=== PATIENT | male | born 1985 | race Caucasian/White ===

== ENCOUNTER 2016-12-14 08:17 | Day surgery (SDC) | payer OTHER ==
[~2016-12-14] VITALS: Ht 181.6 cm; Wt 75.0 kg
[~2016-12-14 08:17] MED LIST: BUPIVACAINE/PF 0.5% ONE
[2016-12-14] MEDS ORDERED: SODIUM CHLORIDE 0.9% 1,000 ML IV SCH (09:09)
[2016-12-14 09:39] VITALS: BP 138/89
[2016-12-14] MEDS ORDERED: LISI-167 PO (09:39)
[2016-12-14] MEDS ORDERED: HEPARIN 1,000 UNITS/ML, 10ML ONE (13:00)
[2016-12-14] MEDS ORDERED: FENTANYL PF 250 MCG/5ML ONE (13:01)
[2016-12-14] MEDS ORDERED: MIDAZOLAM 1 MG/ML, 2ML ONE (13:01)
[2016-12-14] MEDS ORDERED: BUPIVACAINE/PF-EPI 0.5% 1:200K ONE (13:04)
[2016-12-14] MEDS ORDERED: NEOSTIGMINE 1 MG/ML, 10ML ONE (13:16)
[2016-12-14] MEDS ORDERED: GLYCOPYRROLATE 0.2MG/1ML ONE (13:16)
[2016-12-14] MEDS ORDERED: CEFAZOLIN 1,000 MG ONE (13:16)
[2016-12-14] MEDS ORDERED: DEXAMETHASONE 4 MG/ML, 1ML ONE (13:16)
[2016-12-14] MEDS ORDERED: ROCURONIUM 10 MG/ML ONE (13:16)
[2016-12-14] MEDS ORDERED: ONDANSETRON 2MG/ML, 2ML ONE (13:16)
[2016-12-14] MEDS ORDERED: hydrALAzine 20 MG/ML, 1ML IV PRN (14:00)
[2016-12-14] MEDS ORDERED: ACETAMINOPHEN 325 MG TABLET PO PRN (14:00)
[2016-12-14] MEDS ORDERED: OXYcodone 5 MG/5 ML ORAL.SOL UDC PO PRN (14:00)
[2016-12-14] MEDS ORDERED: METOPROLOL 1 MG/ML, 5ML IV PRN (14:00)
[2016-12-14] MEDS ORDERED: ALBUTEROL SULFATE 2.5 MG/3 ML NPPB PRN (14:00)
[2016-12-14] MEDS ORDERED: FENTANYL PF 100 MCG/2ML IV PRN (14:00)
[2016-12-14] MEDS ORDERED: EPHEDRINE 50 MG/ML, 1ML IVPush PRN (14:00)
[2016-12-14] MEDS ORDERED: LABETALOL 5MG/ML, 20ML IV PRN (14:00)
[2016-12-14] MEDS ORDERED: HYDROmorphone 1 MG/ML, 1ML IV PRN (14:00)
[2016-12-14] MEDS ORDERED: ONDANSETRON 2MG/ML, 2ML IVPush PRN (14:00)
[2016-12-14] MEDS ORDERED: PROMETHAZINE 25 MG/ML, 1ML IV PRN (14:00)
[2016-12-14] MEDS ORDERED: FENTANYL PF 100 MCG/2ML ONE (14:20)
[2016-12-14] MEDS ORDERED: ACETAMINOPHEN 650 MG/20.3 ML UDC ONE (14:20)
[2016-12-14] MEDS ORDERED: ACETAMINOPHEN 325 MG TABLET ONE (14:21)
[2016-12-14] MEDS ORDERED: OXYcodone 5 MG/5 ML ORAL.SOL UDC ONE (14:21)
== END 2016-12-14 15:45 | disposition home or self-care (01) ==
LOC: OUT 08:17
PROVIDERS: ATTEND Surgery Vascular Surgery
DX: I12.0 Hypertensive chronic kidney disease with stage 5 chronic kidney disease or end stage renal disease (principal); N18.6 End stage renal disease; F17.210 Nicotine dependence, cigarettes, uncomplicated; F90.9 Attention-deficit hyperactivity disorder, unspecified type; N02.8 Recurrent and persistent hematuria with other morphologic changes; Z94.0 Kidney transplant status; Z72.89 Other problems related to lifestyle; E78.5 Hyperlipidemia, unspecified; E55.9 Vitamin D deficiency, unspecified; N25.81 Secondary hyperparathyroidism of renal origin
CPT/HCPCS: 36415; 36558; 49324; 77001; 80047; C1750; C1751; J0690; J1100; J1644; J2250; J2405; J2710; J3010; J7030; 76000; 76001; J3490